=== PATIENT | male | born 1985 | race Caucasian/White ===

== ENCOUNTER 2017-08-03 22:25 | Emergency (ER) | payer SELFPAY ==
[~2017-08-03] VITALS: Ht 172.7 cm; Wt 68.0 kg
[2017-08-03 22:25] VITALS: BP 132/84
--- NOTE | 2017-08-03 23:40 | NUR ---
PT DC'D BY HECTOR GURROLA; HOWEVER, PT DID NOT WANT TO WAIT FOR DC PAPERWORK AND LEFT THE ER.
== END 2017-08-03 23:44 | disposition home or self-care (01) ==
LOC: ER 22:29
DX: Z13.89 Encounter for screening for other disorder (principal); F20.9 Schizophrenia, unspecified
CPT/HCPCS: 99283; A4606; Z7610